=== PATIENT | female | born 1940 | race Caucasian/White ===

== ENCOUNTER 2023-12-22 11:35 | Inpatient (IN) | payer MEDICARE, OTHER ==
[~2023-12-22] VITALS: Ht 144.8 cm; Wt 72.1 kg
[2023-12-22 11:30] VITALS: BP 138/56; TEMP 97.8; O2SAT 95
[2023-12-22] MEDS ORDERED: HYDR2TAB4 PO (12:19)
[2023-12-22] MEDS ORDERED: ENOX40DI SQ (12:19)
[2023-12-22] MEDS ORDERED: ACET325T53 PO (12:19)
[2023-12-22] MEDS ORDERED: BACL10TA PO (12:19)
[2023-12-22] MEDS ORDERED: MELA1TAB27 PO (12:19)
[2023-12-22] MEDS ORDERED: GABA600T12 PO (12:19)
[2023-12-22] MEDS ORDERED: FLUT16SP BNOSTRILS (12:19)
[2023-12-22] MEDS ORDERED: LISI40TA13 PO (12:19)
[2023-12-22] MEDS ORDERED: DOCU100C36 PO (12:19)
[2023-12-22] MEDS ORDERED: AMLO-212 PO (12:19)
[2023-12-22] MEDS ORDERED: PANT40TA49 PO (12:19)
[2023-12-22] MEDS ORDERED: ASPI-992 PO (12:19)
[2023-12-22] MEDS ORDERED: ZOLPIDEM TARTRATE 5 MG TABLET PO PRN (15:30)
[2023-12-22] MEDS ORDERED: ACETAMINOPHEN 325 MG TABLET PO PRN (15:30)
[2023-12-22] MEDS ORDERED: Z GUARD REMEDY 4 OZ OINT TP PRN (15:30)
[2023-12-22] MEDS ORDERED: MAG HYDROX/AL HYDROX/SIMETH 30 ML UDC PO PRN (15:30)
[2023-12-22] MEDS ORDERED: MAGNESIUM HYDROXIDE 30 ML UDC PO PRN (15:30)
[2023-12-22] MEDS ORDERED: ONDANSETRON HCL/PF 4 MG/2 ML VIAL IVP PRN (15:30)
[2023-12-22 16:00] VITALS: BP 135/53; TEMP 97.9; O2SAT 93
[2023-12-22] MEDS: GABAPENTIN 300 MG CAPSULE PO SCH (16:49)
[2023-12-22 17:02] LABS: CARBON DIOXIDE 26 mmol/L (21-32); CHLORIDE 109 mmol/L (98-107); CREATININE 0.6 mg/dL (0.6-1.3); GLUCOSE 75 mg/dL (74-106); SODIUM SERUM 146 mmol/L (136-145); UREA NITROGEN, BLOOD 12 mg/dL (7-18)
[2023-12-22] MEDS: HYDROMORPHONE HCL 2 MG TABLET PO PRN (17:16)
[2023-12-22 20:00] VITALS: BP 134/72; TEMP 97.3; O2SAT 95
[2023-12-22] MEDS: ENOXAPARIN SODIUM 80 MG/0.8 ML DISP.SYRIN SQ SCH (20:14)
[2023-12-22] MEDS: BACLOFEN (10 MG) 10 MG TABLET PO SCH (22:05)
[2023-12-22] MEDS: DOCUSATE SODIUM 100 MG CAPSULE PO SCH (22:06)
[2023-12-23] VITALS (18 sets, daily range): BP systolic 84–178; BP diastolic 42–83; TEMP 97.6–98.4; O2SAT 94–100
[2023-12-23] MEDS: HYDROMORPHONE 1 MG/1 ML DISP.SYRIN IV ONE (06:38)
[2023-12-23 07:32] LABS: BASOPHILS % (AUTO) 0.2 % (0.0-2.0); EOSINOPHILS # (AUTO) 0.1 K/uL (0.0-0.7); EOSINOPHILS % (AUTO) 1.3 % (0.0-6.0); HEMATOCRIT 40 % (33-45); HEMOGLOBIN 13.9 g/dL (11.5-14.8); LYMPHOCYTES # (AUTO) 1.4 K/uL (0.8-4.8); LYMPHOCYTES % (AUTO) 31.2 % (20.0-44.0); MEAN CORPUSCULAR HEMOGLOBIN 31 PG (26.0-33.0); MEAN CORPUSCULAR HGB CONC 34 g/dl (31.0-36.0); MEAN CORPUSCULAR VOLUME 91 fL (82-100); MONOCYTES # (AUTO) 0.7 K/uL (0.1-1.30); MONOCYTES % (AUTO) 15.1 % (2.0-12.0); NEUTROPHILS # (AUTO) 2.3 K/uL (1.8-8.9); NEUTROPHILS % (AUTO) 52.2 % (43.0-81.0); PLATELET COUNT (AUTO) 160 K/uL (150-450); RED BLOOD CELL COUNT(AUTO) 4.45 MIL/uL (4.0-5.2); RED CELL DISTRIBUTION WIDTH 13.5 % (11.5-15.0); WHITE BLOOD COUNT (AUTO) 4.4 K/uL (4.3-11.0)
[2023-12-23 07:54] LABS: INR 0.98 (0.91-1.10); PROTHROMBIN TIME 10.4 SECS (9.2-11.1)
[2023-12-23] MEDS: ASPIRIN 325 MG TABLET PO SCH (08:28)
[2023-12-23] MEDS: LISINOPRIL (20MG) 20 MG TABLET PO SCH (08:28)
[2023-12-23] MEDS: AMLODIPINE BESYLATE 5 MG TABLET PO SCH (08:28)
[2023-12-23] MEDS: PANTOPRAZOLE 40 MG TABLET.DR PO SCH (08:29)
[2023-12-23] MEDS: FLUTICASONE PROPIONATE 16 GM BOTTLE NS SCH (08:59)
[2023-12-23 10:26] LABS: CALCIUM, SERUM 9.4 mg/dL (8.5-10.1); CARBON DIOXIDE 28 mmol/L (21-32); CHLORIDE 103 mmol/L (98-107); CREATININE 0.8 mg/dL (0.6-1.3); GLUCOSE 88 mg/dL (74-106); MAGNESIUM 2.2 mg/dL (1.8-2.4); PHOSPHORUS 3.6 mg/dL (2.5-4.9); POTASSIUM 4.1 mmol/L (3.5-5.1); SODIUM SERUM 140 mmol/L (136-145); UREA NITROGEN, BLOOD 14 mg/dL (7-18)
[2023-12-23] MEDS ORDERED: IV SET PRIMARY PUMP SET 1 EA INFUS.SET MC ONE (11:04)
[2023-12-23] MEDS ORDERED: LIDOCAINE HCL/MPF 1% 30 ML VIAL IJ ONE (11:04)
[2023-12-23] MEDS ORDERED: IV NS 0.9% 500 ML IV ONE (11:04)
[2023-12-23] MEDS ORDERED: IODIXANOL 150 ML IV ONE (11:04)
[2023-12-23] MEDS ORDERED: NITROGLYCERIN IN 5 % DEXTROSE 250 ML IV ONE (11:05)
[2023-12-23] MEDS ORDERED: FENTANYL PF 100MCG/2ML AMPUL ONE (11:58)
[2023-12-23] MEDS ORDERED: MIDAZOLAM HCL 2 MG/2ML VIAL ONE (11:58)
[2023-12-23] MEDS ORDERED: HEPARIN SODIUM, PORCINE 1,000 UNIT/ML VIAL ONE (12:45)
[2023-12-23] MEDS ORDERED: HEPARIN SODIUM, PORCINE 5000 UNITS/1 ML VIAL ONE (12:45)
[2023-12-23] MEDS ORDERED: TICAGRELOR 90 MG TABLET ONE (12:53)
[2023-12-23] MEDS ORDERED: hydrALAZINE HCL IV 20 MG VIAL ONE (12:53)
[2023-12-23] MEDS: ACETAMINOPHEN 325 MG TABLET PO PRN (15:48)
[2023-12-23] MEDS: CLONIDINE HCL 0.1 MG TABLET PO PRN (15:56)
[2023-12-23] MEDS: TICAGRELOR 90 MG TABLET PO SCH (19:23)
[2023-12-24] VITALS (20 sets, daily range): BP systolic 95–124; BP diastolic 46–68; TEMP 97.6–100.6; O2SAT 83–99
[2023-12-24] MEDS: NITROGLYCERIN 0.4 MG/TAB BOTTLE SL PRN (02:17)
[2023-12-24] MEDS: IV NS 0.9% 500 ML IV STA (03:02)
[2023-12-24] MEDS: MORPHINE SULFATE INJ 2 MG/ML DISP.SYRIN IV STA (03:13)
[2023-12-24 03:17] LABS: BASOPHILS % (AUTO) 0.2 % (0.0-2.0); EOSINOPHILS # (AUTO) 0.1 K/uL (0.0-0.7); EOSINOPHILS % (AUTO) 1.6 % (0.0-6.0); HEMATOCRIT 37 % (33-45); LYMPHOCYTES % (AUTO) 20.6 % (20.0-44.0); MEAN CORPUSCULAR HEMOGLOBIN 32 PG (26.0-33.0); MEAN CORPUSCULAR HGB CONC 35 g/dl (31.0-36.0); MEAN CORPUSCULAR VOLUME 92 fL (82-100); MONOCYTES # (AUTO) 0.7 K/uL (0.1-1.30); NEUTROPHILS % (AUTO) 63.6 % (43.0-81.0); PLATELET COUNT (AUTO) 145 K/uL (150-450); RED BLOOD CELL COUNT(AUTO) 4.04 MIL/uL (4.0-5.2); RED CELL DISTRIBUTION WIDTH 13.4 % (11.5-15.0); WHITE BLOOD COUNT (AUTO) 4.8 K/uL (4.3-11.0)
[2023-12-24 03:35] LABS: CALCIUM, SERUM 8.7 mg/dL (8.5-10.1); CARBON DIOXIDE 26 mmol/L (21-32); CHLORIDE 106 mmol/L (98-107); CREATININE 0.7 mg/dL (0.6-1.3); GLUCOSE 97 mg/dL (74-106); POTASSIUM 3.9 mmol/L (3.5-5.1); SODIUM SERUM 139 mmol/L (136-145); UREA NITROGEN, BLOOD 13 mg/dL (7-18)
[2023-12-24] MEDS: ASPIRIN EC 81 MG TABLET.DR PO SCH (08:24)
[2023-12-24] MEDS: MORPHINE SULFATE INJ 2 MG/ML DISP.SYRIN IV PRN (10:03)
[2023-12-25] VITALS: BP 108/82; TEMP 99; O2SAT 94
[2023-12-25 04:00] VITALS: BP 99/82; TEMP 99.1; O2SAT 93
[2023-12-25 08:00] VITALS: BP 120/51; TEMP 98.1; O2SAT 95
[2023-12-25] MEDS: LISINOPRIL (20MG) 20 MG TABLET PO SCH (08:47)
[2023-12-25] MEDS ORDERED: TICA90TA PO (10:42)
[2023-12-25] MEDS ORDERED: Aspirin Ec PO (10:42)
[2023-12-25 12:00] VITALS: BP 116/53; TEMP 98.4; O2SAT 93
== END 2023-12-25 13:20 | disposition home health service (06) | DRG 322 ==
LOC: MED 11:35 → TELE 20:08 → ICU 12-23 13:15 → TELE1 12-24 17:40
PROVIDERS: ADMIT Internal Medicine; ATTEND Internal Medicine
PROC: 4A023N7 Measurement of Cardiac Sampling and Pressure, Left Heart, Percutaneous Approach (ICD-10-PCS; principal; 2023-12-23)
PROC: B211YZZ Fluoroscopy of Multiple Coronary Arteries using Other Contrast (ICD-10-PCS; 2023-12-23)
PROC: 027034Z Dilation of Coronary Artery, One Artery with Drug-eluting Intraluminal Device, Percutaneous Approach (ICD-10-PCS; 2023-12-23)
PROC: B34HZZZ Ultrasonography of Right Upper Extremity Arteries (ICD-10-PCS; 2023-12-23)
DX: I25.110 Atherosclerotic heart disease of native coronary artery with unstable angina pectoris (principal); D68.69 Other thrombophilia; I24.9 Acute ischemic heart disease, unspecified; I50.32 Chronic diastolic (congestive) heart failure; I11.0 Hypertensive heart disease with heart failure; Z74.09 Other reduced mobility; E66.9 Obesity, unspecified; E78.5 Hyperlipidemia, unspecified; G89.29 Other chronic pain; Z85.3 Personal history of malignant neoplasm of breast; Z88.2 Allergy status to sulfonamides; Z98.82 Breast implant status; Z91.81 History of falling; E04.1 Nontoxic single thyroid nodule; I87.2 Venous insufficiency (chronic) (peripheral); N81.6 Rectocele; Z88.1 Allergy status to other antibiotic agents; Z68.34 Body mass index [BMI] 34.0-34.9, adult; R26.81 Unsteadiness on feet; M41.9 Scoliosis, unspecified
CPT/HCPCS: 36415; 71045-TC; 80048-TC; 83735-TC; 84100-TC; 84484-TC; 85025-TC; 85610-TC; 85730-TC; 97110-TC; 97112-TC; 97116-TC; 97530-TC; A4223; G0378; J0360; J1170; J1644; J2250; J2270; J3010; J3490; J7040; J7050; J7070; Q9967

== ENCOUNTER 2023-12-31 21:52 | Inpatient (IN) | payer MEDICARE ==
[~2023-12-31] VITALS: Ht 165.1 cm; Wt 70.3 kg
[~2023-12-31 21:52] MED LIST: ACET325T53 PO; AMLO-212 PO; Aspirin Ec PO; BACL10TA PO; DOCU100C36 PO; FLUT16SP BNOSTRILS; GABA600T12 PO; LISI40TA13 PO; MELA1TAB27 PO; PANT40TA49 PO; TICA90TA PO
[2023-12-31] MEDS ORDERED: ONDANSETRON HCL/PF 4 MG/2 ML VIAL ONE ×2 (23:07→23:53)
[2023-12-31] MEDS ORDERED: MORPHINE SULFATE INJ 2 MG/ML DISP.SYRIN ONE (23:07)
[2023-12-31] MEDS: IV NS 0.9% 500 ML BAG IV ONE (23:09)
[2023-12-31] MEDS: ONDANSETRON HCL/PF 4 MG/2 ML VIAL IV ONE ×2 (23:10→23:55)
[2023-12-31] MEDS: MORPHINE SULFATE INJ 2 MG/ML DISP.SYRIN IV ONE (23:10)
[2023-12-31 23:15] LABS: BASOPHILS % (AUTO) 0.3 % (0.0-2.0); EOSINOPHILS # (AUTO) 0.1 K/uL (0.0-0.7); EOSINOPHILS % (AUTO) 1.2 % (0.0-6.0); HEMATOCRIT 40 % (33-45); LYMPHOCYTES # (AUTO) 1.4 K/uL (0.8-4.8); LYMPHOCYTES % (AUTO) 13.9 % (20.0-44.0); MEAN CORPUSCULAR HEMOGLOBIN 32 PG (26.0-33.0); MEAN CORPUSCULAR HGB CONC 35 g/dl (31.0-36.0); MEAN CORPUSCULAR VOLUME 90 fL (82-100); MONOCYTES # (AUTO) 1.4 K/uL (0.1-1.30); MONOCYTES % (AUTO) 14.4 % (2.0-12.0); NEUTROPHILS # (AUTO) 6.9 K/uL (1.8-8.9); NEUTROPHILS % (AUTO) 70.2 % (43.0-81.0); PLATELET COUNT (AUTO) 234 K/uL (150-450); RED CELL DISTRIBUTION WIDTH 13.2 % (11.5-15.0); WHITE BLOOD COUNT (AUTO) 9.8 K/uL (4.3-11.0)
[2023-12-31 23:30] LABS: ALANINE AMINOTRANSFERASE 21 U/L (12-78); ALBUMIN 3.1 g/dL (3.4-5.0); ALKALINE PHOSPHATASE 114 U/L (46-116); ASPARTATE AMINOTRANSFERASE 13 U/L (15-37); BILIRUBIN,DIRECT 0.3 mg/dL (0.0-0.2); BILIRUBIN,TOTAL 1.1 mg/dL (0.2-1.0); CALCIUM, SERUM 8.9 mg/dL (8.5-10.1); CARBON DIOXIDE 24 mmol/L (21-32); CHLORIDE 102 mmol/L (98-107); CREATININE 0.7 mg/dL (0.6-1.3); GLUCOSE 108 mg/dL (74-106); LIPASE 26 U/L (16-77); POTASSIUM 3.8 mmol/L (3.5-5.1); SODIUM SERUM 138 mmol/L (136-145); TOTAL PROTEIN, SERUM 7.2 g/dL (6.4-8.2); UREA NITROGEN, BLOOD 14 mg/dL (7-18)
[2023-12-31] MEDS ORDERED: IOHEXOL-300 100 ML VIAL IV ONE (23:47)
[2023-12-31] MEDS ORDERED: CT SWABBABLE VALVE TRANS SET 1 EA INFUS.SET MC ONE (23:47)
[2023-12-31] MEDS ORDERED: IV NS 0.9% 250 ML IV ONE (23:47)
[2024-01-01 00:40] LABS: APPEARANCE,URINE CLOUDY (CLEAR); BILIRUBIN,URINE NEGATIVE (NEGATIVE); BLOOD, URINE 3+ Ery/uL (NEGATIVE); COLOR,URINE YELLOW (YELLOW); KETONES,URINE NEGATIVE (NEGATIVE); LEUKOCYTE ESTERASE ,URINE 3+ (NEGATIVE); NITRITE, URINE NEGATIVE (NEGATIVE); PH,URINE 6.5 (5.0-8.0); PROTEIN,URINE 2+ mg/dl (NEGATIVE); UGLUCOSE NEGATIVE (NEGATIVE); UROBILINOGEN,URINE 0.2 EU/dL (0.2)
[2024-01-01 00:41] LABS: ADD URINE CULTURE YES; BACTERIA,URINE Moderate /HPF (None Seen); SQUAMOUS EPITHELIAL CELL,UR Rare /HPF (None Seen); WBC,URINE 51-80 /HPF (0-3)
[2024-01-01] MEDS: LEVOFLOXACIN 750 MG /D5W 150ML PIGGYBACK IV ONE (01:30)
[2024-01-01] MEDS ORDERED: LEVOFLOXACIN 750 MG /D5W 150ML 150 ML IV ONE (01:30)
[2024-01-01] MEDS ORDERED: MAGNESIUM HYDROXIDE 30 ML UDC PO PRN (02:00)
[2024-01-01] MEDS ORDERED: ZOLPIDEM TARTRATE 5 MG TABLET PO PRN (02:00)
[2024-01-01] MEDS ORDERED: Z GUARD REMEDY 4 OZ OINT TP PRN (02:00)
[2024-01-01] MEDS ORDERED: ACETAMINOPHEN 325 MG TABLET PO PRN ×2 (02:00→11:30)
[2024-01-01] MEDS ORDERED: Medication Not On Formulary EA (Melatonin/Pyridoxine HCl (B6) (Melatonin 3 mg Tablet) 1 PO PRN (02:00)
[2024-01-01] MEDS ORDERED: MAG HYDROX/AL HYDROX/SIMETH 30 ML UDC PO PRN (02:00)
[2024-01-01] MEDS: IV NS 0.9% 1,000 ML IV SCH (04:05)
[2024-01-01] MEDS: MORPHINE SULFATE INJ 2 MG/ML DISP.SYRIN IV PRN (04:18)
[2024-01-01 05:01] VITALS: BP 151/72; TEMP 98.6; O2SAT 96
[2024-01-01 08:00] VITALS: BP 131/63; TEMP 98.1; O2SAT 94
[2024-01-01] MEDS: AMLODIPINE BESYLATE 5 MG TABLET PO SCH (09:30)
[2024-01-01] MEDS: PANTOPRAZOLE 40 MG TABLET.DR PO SCH (09:30)
[2024-01-01] MEDS: LISINOPRIL (20MG) 20 MG TABLET PO SCH (09:30)
[2024-01-01] MEDS: GABAPENTIN 300 MG CAPSULE PO SCH (09:30)
[2024-01-01] MEDS: FLUTICASONE PROPIONATE 16 GM BOTTLE NS SCH (09:31)
[2024-01-01 12:00] VITALS: BP 142/66; TEMP 97.9; O2SAT 95
[2024-01-01] MEDS: TICAGRELOR 90 MG TABLET PO SCH (12:24)
[2024-01-01] MEDS: ONDANSETRON HCL/PF 4 MG/2 ML VIAL IVP PRN (12:49)
[2024-01-01 16:00] VITALS: BP 120/63; TEMP 98; O2SAT 94
[2024-01-01 20:00] VITALS: BP 109/54; TEMP 98.1; O2SAT 95
[2024-01-01] MEDS: BACLOFEN (10 MG) 10 MG TABLET PO SCH (21:16)
[2024-01-01] MEDS: DOCUSATE SODIUM 100 MG CAPSULE PO SCH (21:16)
[2024-01-02] VITALS: BP 112/84; TEMP 98; O2SAT 96
[2024-01-02] MEDS: LEVOFLOXACIN 500 MG /D5W 100ML 500 MG in PREMIX 1 EA IV SCH (01:21)
[2024-01-02 04:00] VITALS: BP 110/84; TEMP 98.2; O2SAT 96
[2024-01-02 07:51] LABS: BASOPHILS % (AUTO) 0.3 % (0.0-2.0); EOSINOPHILS # (AUTO) 0.2 K/uL (0.0-0.7); EOSINOPHILS % (AUTO) 3.5 % (0.0-6.0); HEMATOCRIT 35 % (33-45); HEMOGLOBIN 12.2 g/dL (11.5-14.8); LYMPHOCYTES # (AUTO) 1.1 K/uL (0.8-4.8); LYMPHOCYTES % (AUTO) 22.8 % (20.0-44.0); MEAN CORPUSCULAR HEMOGLOBIN 32 PG (26.0-33.0); MEAN CORPUSCULAR HGB CONC 36 g/dl (31.0-36.0); MEAN CORPUSCULAR VOLUME 90 fL (82-100); MONOCYTES # (AUTO) 0.7 K/uL (0.1-1.30); MONOCYTES % (AUTO) 14.2 % (2.0-12.0); NEUTROPHILS # (AUTO) 2.9 K/uL (1.8-8.9); NEUTROPHILS % (AUTO) 59.2 % (43.0-81.0); PLATELET COUNT (AUTO) 195 K/uL (150-450); RED BLOOD CELL COUNT(AUTO) 3.83 MIL/uL (4.0-5.2); RED CELL DISTRIBUTION WIDTH 13.2 % (11.5-15.0); WHITE BLOOD COUNT (AUTO) 4.8 K/uL (4.3-11.0)
[2024-01-02 08:00] VITALS: BP 152/72; TEMP 97.6; O2SAT 96
[2024-01-02 08:25] LABS: CALCIUM, SERUM 8.2 mg/dL (8.5-10.1); CARBON DIOXIDE 25 mmol/L (21-32); CHLORIDE 107 mmol/L (98-107); CREATININE 0.8 mg/dL (0.6-1.3); GLUCOSE 88 mg/dL (74-106); MAGNESIUM 2.1 mg/dL (1.8-2.4); PHOSPHORUS 3.2 mg/dL (2.5-4.9); POTASSIUM 3.9 mmol/L (3.5-5.1); SODIUM SERUM 140 mmol/L (136-145); UREA NITROGEN, BLOOD 13 mg/dL (7-18)
[2024-01-02 16:00] VITALS: BP 105/51; TEMP 98.2; O2SAT 97
[2024-01-02 20:00] VITALS: BP 130/58; TEMP 98; O2SAT 96
[2024-01-02] MEDS: IV NS 0.9% 1,000 ML IV PRN (20:50)
[2024-01-03 04:00] VITALS: BP 109/83; TEMP 98.5; O2SAT 97
[2024-01-03 08:06] LABS: BASOPHILS % (AUTO) 0.3 % (0.0-2.0); EOSINOPHILS # (AUTO) 0.2 K/uL (0.0-0.7); EOSINOPHILS % (AUTO) 3.2 % (0.0-6.0); HEMATOCRIT 35 % (33-45); HEMOGLOBIN 12.3 g/dL (11.5-14.8); LYMPHOCYTES # (AUTO) 1.1 K/uL (0.8-4.8); LYMPHOCYTES % (AUTO) 23.5 % (20.0-44.0); MEAN CORPUSCULAR HEMOGLOBIN 32 PG (26.0-33.0); MEAN CORPUSCULAR HGB CONC 35 g/dl (31.0-36.0); MEAN CORPUSCULAR VOLUME 91 fL (82-100); MONOCYTES # (AUTO) 0.6 K/uL (0.1-1.30); MONOCYTES % (AUTO) 11.9 % (2.0-12.0); NEUTROPHILS # (AUTO) 2.9 K/uL (1.8-8.9); NEUTROPHILS % (AUTO) 61.1 % (43.0-81.0); PLATELET COUNT (AUTO) 210 K/uL (150-450); RED BLOOD CELL COUNT(AUTO) 3.82 MIL/uL (4.0-5.2); RED CELL DISTRIBUTION WIDTH 12.9 % (11.5-15.0); WHITE BLOOD COUNT (AUTO) 4.8 K/uL (4.3-11.0)
[2024-01-03 08:37] LABS: CALCIUM, SERUM 8.5 mg/dL (8.5-10.1); CARBON DIOXIDE 24 mmol/L (21-32); CHLORIDE 108 mmol/L (98-107); CREATININE 0.8 mg/dL (0.6-1.3); GLUCOSE 94 mg/dL (74-106); MAGNESIUM 2.1 mg/dL (1.8-2.4); PHOSPHORUS 3.5 mg/dL (2.5-4.9); POTASSIUM 3.9 mmol/L (3.5-5.1); SODIUM SERUM 141 mmol/L (136-145); UREA NITROGEN, BLOOD 11 mg/dL (7-18)
[2024-01-03 16:00] VITALS: BP 137/65; TEMP 98.1; O2SAT 96
[2024-01-04 02:00] VITALS: BP 147/72; TEMP 98.1; O2SAT 96
[2024-01-04 06:43] LABS: BASOPHILS % (AUTO) 0.5 % (0.0-2.0); EOSINOPHILS # (AUTO) 0.1 K/uL (0.0-0.7); EOSINOPHILS % (AUTO) 2.7 % (0.0-6.0); HEMATOCRIT 39 % (33-45); HEMOGLOBIN 13.5 g/dL (11.5-14.8); LYMPHOCYTES # (AUTO) 1.4 K/uL (0.8-4.8); LYMPHOCYTES % (AUTO) 25.8 % (20.0-44.0); MEAN CORPUSCULAR HEMOGLOBIN 32 PG (26.0-33.0); MEAN CORPUSCULAR HGB CONC 35 g/dl (31.0-36.0); MEAN CORPUSCULAR VOLUME 91 fL (82-100); MONOCYTES # (AUTO) 0.6 K/uL (0.1-1.30); MONOCYTES % (AUTO) 11.9 % (2.0-12.0); NEUTROPHILS # (AUTO) 3.2 K/uL (1.8-8.9); NEUTROPHILS % (AUTO) 59.1 % (43.0-81.0); PLATELET COUNT (AUTO) 240 K/uL (150-450); RED BLOOD CELL COUNT(AUTO) 4.26 MIL/uL (4.0-5.2); RED CELL DISTRIBUTION WIDTH 12.9 % (11.5-15.0); WHITE BLOOD COUNT (AUTO) 5.4 K/uL (4.3-11.0)
[2024-01-04 06:56] LABS: CALCIUM, SERUM 8.4 mg/dL (8.5-10.1); CARBON DIOXIDE 27 mmol/L (21-32); CHLORIDE 107 mmol/L (98-107); CREATININE 0.8 mg/dL (0.6-1.3); GLUCOSE 90 mg/dL (74-106); POTASSIUM 3.7 mmol/L (3.5-5.1); SODIUM SERUM 140 mmol/L (136-145); UREA NITROGEN, BLOOD 12 mg/dL (7-18)
[2024-01-04 08:00] VITALS: BP 154/60; TEMP 97.7; O2SAT 96
[2024-01-04 16:00] VITALS: BP 155/70; TEMP 98.3; O2SAT 97
[2024-01-04] MEDS ORDERED: LEVO250T59 PO (19:12)
[2024-01-05] VITALS: BP 155/70; TEMP 98.3; O2SAT 97
[2024-01-05] MEDS: LEVOFLOXACIN (250MG) 250 MG TABLET PO SCH (01:59)
[2024-01-05 08:22] VITALS: BP 147/60
== END 2024-01-05 10:44 | disposition home health service (06) | DRG 690 ==
LOC: ER 21:59 → MEDSG1 01-01 02:50 → TELE1 01-01 03:26 → MEDSG1 01-02 09:10
PROVIDERS: ADMIT Nurse Practitioner Acute Care; ATTEND Nurse Practitioner Acute Care
DX: N13.6 Pyonephrosis (principal); I11.0 Hypertensive heart disease with heart failure; I50.9 Heart failure, unspecified; E88.09 Other disorders of plasma-protein metabolism, not elsewhere classified; G89.29 Other chronic pain; I25.10 Atherosclerotic heart disease of native coronary artery without angina pectoris; E80.6 Other disorders of bilirubin metabolism; Z85.3 Personal history of malignant neoplasm of breast; Z87.891 Personal history of nicotine dependence; Z88.2 Allergy status to sulfonamides; R00.1 Bradycardia, unspecified; J98.4 Other disorders of lung; Z95.5 Presence of coronary angioplasty implant and graft; N12 Tubulo-interstitial nephritis, not specified as acute or chronic; B96.89 Other specified bacterial agents as the cause of diseases classified elsewhere; Z90.710 Acquired absence of both cervix and uterus; M79.7 Fibromyalgia
CPT/HCPCS: 36415; 71045-TC; 80048-TC; 80076-TC; 81001; 83690-TC; 83735-TC; 84100-TC; 84484-TC; 85025-TC; 87086-TC; A4216; A4223; G0378; J1956; J2270; J2405; J3490; J7030; J7040; J7050; Q9967